=== PATIENT | male | born 1965 | race Caucasian/White ===

== ENCOUNTER 2017-05-26 08:36 | Emergency (ER) | payer BC ==
[2017-05-26] MEDS ORDERED: levETIRAcetam 500 MG in Sodium Chloride 0.9% 100 ML IV ONE ×2 (08:37→09:10)
[2017-05-26] MEDS ORDERED: levETIRAcetam 500 MG Tab ONE (08:50)
[2017-05-26] MEDS ORDERED: Sodium Chloride 0.9% 10 ML Syringe FLUSH PRN (09:00)
[2017-05-26] MEDS ORDERED: Sodium Chloride 0.9% 1,000 ML IV SCH (09:00)
[2017-05-26] MEDS ORDERED: Ketorolac 30 MG/ML SDV ONE (10:24)
[2017-05-26] MEDS ORDERED: Ketorolac 60 MG/2 ML SDV IVPUSH ONE (14:59)
--- NOTE | 2017-05-26 15:57 | ER ---
HISTORY OF PRESENT ILLNESS: This is a 52-year-old male here with a friend. He is up here on a fishing trip. The patient forgot to bring his medication that he takes for seizure, which is Keppra 1000 mg b.i.d., and he is also on Trileptal. He did double his dose before coming up here 2 days ago. Yesterday, he did not take any. He is not really sure why he did this. The patient started having seizures early this morning. He had 3 small seizures over the course of a couple of hours. His friend tells me they only lasted a minute or two. They plan on traveling back home to the [facility] area today and would like to have some medication to help the patient make it home. The patient states he otherwise has been healthy and he has done well when he is on his medications for, to control his seizures. OBJECTIVE: GENERAL APPEARANCE: The patient is awake and alert. No obvious distress. Vital signs are reviewed. They are normal. Physical exam eyes, pupils equal, round, and reactive to light. EOMs are intact. Head is normocephalic. Oral mucous membranes moist. The patient has a couple small abrasion injuries to his tongue, most likely from one of the recent seizures. Neck is supple. Lungs are clear. Cardiac: Heart sounds distinct without murmurs. Skin is warm and dry. DIAGNOSIS: Seizures with known history of seizures, currently off his medication. TREATMENT PLAN: Diazepam 10 mg was given IM. About 5 minutes after giving this medication, the patient went into another seizure. We then gave him another dose of diazepam 10 mg IV. The seizure lasted for approximately 2 minutes after which the patient was sleeping soundly for about 15 minutes. He then woke up and was somewhat groggy, but started to feel better. He was incontinent during the seizure. We monitored the patient here for another hour. He was having a lot of diffuse myalgia pain. We gave him Toradol 30 mg IV and his left shoulder was giving him pain, which he injured previously during a seizure a few months ago. We gave the patient a sling for his left shoulder. At this point, he feels up to traveling home. We gave the patient Keppra 500 mg IV and we will send the patient home with diazepam 10 mg in IV form. He has Hep-Lock in place. One of his buddies is a press worker helper and he feels comfortable giving him medication. They gave diazepam 2 to 3 mg per IV. This can be done as needed going home. The patient is to resume his current medications as soon as he gets home and follow up with his regular doctor tomorrow, sooner, of course, if he continues to have seizure activity. CRS/MODL /[id number]
== END 2017-05-26 11:00 | disposition home or self-care (01) ==
LOC: LB.ED 08:36
DX: R56.9 Unspecified convulsions (principal); S00.512A Abrasion of oral cavity, initial encounter; X58.XXXA Exposure to other specified factors, initial encounter; Z79.899 Other long term (current) drug therapy
CPT/HCPCS: 96361; 96372; 96374; 96375; 99284-25; A9270-GY; J1885; J1953; J3360; J7030; J7040